=== PATIENT | female | born 1975 | race Caucasian/White ===

== ENCOUNTER 2021-06-22 11:47 | Emergency (ER) | payer MEDICAID ==
[~2021-06-22] VITALS: Ht 157.5 cm; Wt 65.8 kg
[2021-06-22 12:22] VITALS: BP_SYST 111
[2021-06-22] MEDS ORDERED: IBUP-1969 PO (13:24)
[2021-06-22 13:47] VITALS: BP_SYST 111
== END 2021-06-22 13:45 | disposition home or self-care (01) ==
LOC: SED 11:47
DX: S86.811A Strain of other muscle(s) and tendon(s) at lower leg level, right leg, initial encounter (principal); X50.9XXA Other and unspecified overexertion or strenuous movements or postures, initial encounter; Y93.89 Activity, other specified; Y92.89 Other specified places as the place of occurrence of the external cause; Y99.8 Other external cause status
CPT/HCPCS: 73564; 99283